=== PATIENT | female | born 1975 | race Two or more races ===

== ENCOUNTER 2024-08-30 13:45 | Emergency (ER) | payer MEDICAID, OTHER ==
[~2024-08-30] VITALS: Ht 149.9 cm; Wt 81.6 kg
[~2024-08-30 13:45] MED LIST: METH-647 PO; NABU-139 PO
[2024-08-30 13:50] VITALS: O2SAT 99
[2024-08-30] MEDS ORDERED: IBUP-1955 PO (16:04)
[2024-08-30 16:12] VITALS: BP 131/81; TEMP 98; O2SAT 99
== END 2024-08-30 16:13 | disposition home or self-care (01) ==
LOC: ER 14:19
DX: S90.32XA Contusion of left foot, initial encounter (principal); W01.0XXA Fall on same level from slipping, tripping and stumbling without subsequent striking against object, initial encounter; Y93.89 Activity, other specified; Y92.89 Other specified places as the place of occurrence of the external cause; Y99.8 Other external cause status
CPT/HCPCS: 73650-TC